=== PATIENT | female | born 1950 | race Caucasian/White ===

== ENCOUNTER 2022-05-27 13:04 | Outpatient (CLI) | payer MEDICARE, SELFPAY ==
[2022-05-27 14:05] LABS: Albumin* 4.2 g/dL (3.3-5.0); Chloride* 107 mmol/L (96-114); Potassium* 4.4 mmol/L (3.6-5.1); Sodium* 139 mmol/L (135-149)
[2022-05-27 14:08] LABS: Alanine Aminotransferase* 23 U/L (4-35); Alkaline Phosphatase* 64 U/L (40-150); Aspartate Amino Transferase* 29 U/L (12-35); Bilirubin Total* 0.6 mg/dL (0.1-1.5); Blood Urea Nitrogen* 21 mg/dL (7-30); Carbon Dioxide* 25 mmol/L (20-32); Creatinine* 0.6 mg/dL (0.5-1.5); Estimated Glomerular Filt Rate 94 ml/min; Glucose* 103 mg/dL (60-115); Total Protein* 6.9 g/dL (6.0-8.3); Triglycerides* 72 mg/dL (40-149)
[2022-05-27 14:09] LABS: Calcium* 9.8 mg/dL (8.4-10.6)
[2022-05-27 14:21] LABS: Vitamin D 25 Hydroxy* 34 ng/mL (30-80)
[2022-05-27 14:54] LABS: Vitamin B12* 621 pg/mL (243-894)
[2022-05-27 15:19] LABS: Cholesterol* 183 mg/dL (90-199); LDL Cholesterol Calculated 63 mg/dL (<100)
[2022-05-27 15:22] LABS: HDL Cholesterol* 106 mg/dL (>=50)
[2022-05-27 15:48] LABS: Creatinine Urine 111.4 mg/dL
[2022-05-27 15:51] LABS: Microalbumin Creatinine Ratio 0 mg/g (0-30); Microalbumin Urine 1 mg/dL
== END 2022-05-27 13:05 | disposition home or self-care (01) ==
PROVIDERS: PCP Family Medicine; Visit Provider Family Medicine
DX: Z00.00 Encounter for general adult medical examination without abnormal findings (principal); E66.01 Morbid (severe) obesity due to excess calories; R73.03 Prediabetes
CPT/HCPCS: 80053; 80061; 82043; 82306; 82570; 82607

== ENCOUNTER 2022-07-29 10:21 | Outpatient (CLI) | payer MEDICARE, SELFPAY | END 2022-07-29 10:22 | disposition home or self-care (01) | PROVIDERS: PCP Family Medicine; Visit Provider Family Medicine | DX: R51.9 Headache, unspecified (principal); E78.5 Hyperlipidemia, unspecified; R73.03 Prediabetes; I10 Essential (primary) hypertension; G44.85 Primary stabbing headache | CPT/HCPCS: 83735; 86140 ==

== ENCOUNTER 2022-08-12 12:50 | Outpatient (CLI) | payer MEDICARE, SELFPAY ==
--- NOTE | 2022-08-12 13:00 | CRLHL7_ITS ---
For Patients: As a result of the Century Cures Act, medical imaging exams and procedure reports are released immediately into your electronic medical record. You may view this report before your referring provider. If you have questions, please contact your health care provider. CT ANGIOGRAM HEAD DATE: 08/12/2022 CLINICAL HISTORY: Patient with brain aneurysm and headache. TECHNIQUE: Standard helical CT image acquisition through the intracranial circulation following intravenous administration of contrast material with bolus tracking. Multiplanar reconstructed images were performed and interpreted. COMPARISON: CT same day. FINDINGS: There is a 2.5mm left lateral paraclinoid ICA aneurysm. There is no large vessel occlusion. The right internal carotid artery is normal. The right middle cerebral artery and its branches are normal. The right anterior cerebral artery and its branches are normal. The left middle cerebral artery and its branches are normal. The left anterior cerebral artery and its branches are normal. The anterior communicating artery is well visualized and appears normal. The right vertebral artery and PICA are normal. The left vertebral artery and PICA are normal. The left vertebral artery is dominant. The basilar artery is patent and appears normal. The right posterior cerebral artery is normal. The left posterior cerebral artery is normal. IMPRESSION: 2.5mm left lateral paraclinoid ICA aneurysm. Telehealth consultation with [facility]`s Neurointerventional team for enrollment in our long-term brain aneurysm surveillance program can be arranged by calling . Rocío Light M.D. Neurointerventional Radiologist [facility] Pager: Office/Appointments: Answering Service: [facility]: [email or web address] Please note that all CT scans at this facility use dose modulation, iterative reconstruction, and/or weight-based dosing when appropriate to reduce radiation dose to as low as reasonably achievable. Dictated by: Rocío Light MD @ 08/12/2022 15:54:56 (Electronically Signed)
--- NOTE | 2022-08-12 13:00 | CRLHL7_ITS ---
For Patients: As a result of the Cures Act, medical imaging exams and procedure reports are released immediately into your electronic medical record. You may view this report before your referring provider. If you have questions, please contact your health care provider. CT HEAD DATE: 08/12/2022 CLINICAL HISTORY: Patient with headache, known aneurysm. TECHNIQUE: Standard CT scanning of the head was performed. COMPARISON: None. FINDINGS: There is no intracranial hemorrhage. There is no territorial infarction. There are mild microangiopathic changes. There is diffuse parenchymal volume loss. There is no mass effect or midline shift. The calvarium is unremarkable. The orbits are unremarkable. The paranasal sinuses are unremarkable. The mastoid air cells are unremarkable. The soft tissues are unremarkable. IMPRESSION: 1. No intracranial hemorrhage or territorial infarction. 2. Mild microangiopathic changes and diffuse parenchymal volume loss. Please note that all CT scans at this facility use dose modulation, iterative reconstruction, and/or weight-based dosing when appropriate to reduce radiation dose to as low as reasonably achievable. Dictated by: Rocío Light MD @ 08/12/2022 15:52:03 (Electronically Signed)
[2022-08-12 13:42] LABS: Creatinine* 0.7 mg/dL (0.5-1.5); Estimated Glomerular Filt Rate 91 ml/min
== END 2022-08-12 12:51 | disposition home or self-care (01) ==
LOC: CT 12:51
PROVIDERS: PCP Family Medicine; Visit Provider Family Medicine
DX: G44.85 Primary stabbing headache (principal); I67.1 Cerebral aneurysm, nonruptured
CPT/HCPCS: 36415; 70450; 70496; 82565; Q9967

== ENCOUNTER 2023-05-27 12:06 | Outpatient (CLI) | payer MEDICARE, SELFPAY | END 2023-05-27 12:07 | disposition home or self-care (01) | PROVIDERS: PCP Family Medicine; Visit Provider Family Medicine | DX: Z00.00 Encounter for general adult medical examination without abnormal findings (principal); I10 Essential (primary) hypertension; E78.5 Hyperlipidemia, unspecified; E66.01 Morbid (severe) obesity due to excess calories; R73.03 Prediabetes; R03.0 Elevated blood-pressure reading, without diagnosis of hypertension | CPT/HCPCS: 80053; 80061; 82043; 82306; 82570; 82607 ==

== ENCOUNTER 2023-06-04 07:53 | Outpatient (CLI) | payer MEDICARE, SELFPAY ==
--- NOTE | 2023-06-04 09:22 | P.ANES_ITS ---
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
--- NOTE | 2023-06-04 10:12 | W.ANESCHARGE ---
Anesthesia Charges Start Date/Time Anesthesia Start Date: 06/04/23 Anesthesia Start Time: 09:02 Stop Date/Time Anesthesia Stop Date: 06/04/23 Anesthesia Stop Time: 09:17 Summary Extremes of Age - Over 70 or under 1: MDA
== END 2023-06-04 07:54 | disposition home or self-care (01) ==
LOC: OP CLINIC 07:53
PROVIDERS: PCP Family Medicine; Visit Provider Internal Medicine
DX: R10.13 Epigastric pain (principal); R12 Heartburn
CPT/HCPCS: 00731; 43239; 88305; 88342; 99100; J2704

== ENCOUNTER 2023-08-11 13:39 | Outpatient (CLI) | payer MEDICARE, SELFPAY ==
--- NOTE | 2023-08-11 14:00 | XR_ITS ---
Patient: DIXIE PEREZ Facility:?[facility] Patient ID:?[id number] Site Patient ID:?[id number]. Site :?[id number] Study:?DEXA-Bone Density SPINE/BOTH HIPS-08/11/2023 2:09:45 PM Ordering Physician:LEXI Final Report: DXA BONE MINERAL DENSITY STUDY Reason for exam: Asymptomatic menopausal state. Current height (in): 63.5. Weight (lb): 237. Menopause age: 51. Ethnicity: White. 1. Have you had a previous hip or vertebral fracture? No. 2. Have you had any fractures during your adult life which did not result from significant trauma (e.g., auto accident)? No. 3. Did either of your parents have a hip fracture? No. 4. Do you smoke? No. 5. Have you ever taken Glucocorticoids? No. 6. Do you have rheumatoid arthritis? No. 7. Do you have secondary osteoporosis? No. 8. Do you drink 3 or more alcoholic drinks per day? No. 9. Are you being treated for osteoporosis? No. 10. Have you ever taken any of the following medications: Actonel, Evista, Fosamax, Miacalcin, Reclast, Boniva, Forteo, HRT (i.e., estrogen/hormone therapy), Protelos, Prolia, Vitamin D, Calcium, other ? please specify. ANSWER: Yes, vitamin D and multivitamin. 11. Do you have any of the following medical conditions: Anorexia or bulimia, asthma or emphysema, end stage renal disease, hyperparathyroidism, any seizure disorders, cancer, inflammatory bowel diseases, hysterectomy, other ? please specify. ANSWER: Yes, asthma or emphysema. 12. What was your maximum height (inches)? 64. 13. Do you perform weight bearing exercise regularly? No. 14. Do you regularly consume dairy products? No. 15. Do you drink caffeinated beverages? No. If female: 16. At what age did your period start? 12. 17. Are you premenopausal? No. 18. How many full-term pregnancies have you had? 4. 19. Have you ever missed your period for more than 6 months in a row (not including or menopause)? No. TECHNIQUE: Bone mineral density study was performed using the [facility]. FINDINGS: The results of the study expressed as bone mineral density (BMD) are as follows: Lumbar spine L1 to L4: BMD: 0.999 g/cm2. T-score: -0.4. Z-score: 2.0 Neck Left: BMD: 0.729 g/cm2. T-score: -1.1. Z-score: 1.0 Right: BMD: 0.803 g/cm2. T-score: -0.4. Z-score: 1.7 Total Left: BMD: 1.083 g/cm2. T-score: 1.2. Z-score: 3.0 Right: BMD: 1.079 g/cm2. T-score: 1.1. Z-score: 2.9 IMPRESSION: Osteopenia. *Comparison exams done prior to 10/2019 were performed on different unit, [facility]. COMPARISON: Compared with scan of 07/28/2018, the bone mineral density has decreased by 1.2 percent at the spine and increased by 12.9 percent at the hip. FRAX 10-year Fracture Risk Major Osteoporotic Fracture: 8.9% Hip Fracture: 1.4% Reported Risk Factors: [place] () Neck BMD=0.729, BMI=41.3 Narciso Looney M.D. Diagnostic Radiologist [email or web address] ANITA/[email or web address] D& Transcribed: 12:51 p.mHemanth medel/Dictated by: Narciso Looney MD @ 08/12/2023 9:01:00 AM Signed by:?Narciso Looney MD @08/12/2023 1:42:50 PM (Electronic Signature)
== END 2023-08-11 13:40 | disposition home or self-care (01) ==
PROVIDERS: PCP Family Medicine; Visit Provider Family Medicine
DX: Z78.0 Asymptomatic menopausal state (principal); M85.88 Other specified disorders of bone density and structure, other site
CPT/HCPCS: 77080

== ENCOUNTER 2023-09-09 09:25 | Outpatient (CLI) | payer MEDICARE, SELFPAY ==
--- NOTE | 2023-09-09 09:45 | MM_ITS ---
Patient: DIXIE PEREZ Facility:?[facility] Patient ID:?[id number] Site Patient ID:?[id number]. Site :?[id number] Study:?XRay-Breast Bilateral 3D W/CAD-09/09/2023 10:24:48 AM Ordering Physician:Patricia Final Report: DIGITAL DIAGNOSTIC BILATERAL MAMMOGRAM USING TOMOSYNTHESIS AND COMPUTER-AIDED DETECTION LEFT BREAST ULTRASOUND CLINICAL HISTORY: BILATERAL breast pain, LEFT breast lump. COMPARISON: 07/28/2018. TECHNIQUE: Digital BILATERAL mammogram in four projections. Tomosynthesis and CAD utilized. Real-time ultrasound imaging of LEFT breast with imaging documentation. BREAST COMPOSITION: The breasts are almost entirely fatty. FINDINGS: 3D CC/MLO BILATERAL mammogram images submitted. No suspicious masses or architectural distortion. No suspicious calcifications or adenopathy. Targeted LEFT breast ultrasound performed. At 9 o`clock 2 cm from the nipple, there is normal breast tissue. No fibrocystic change or mass. No suspicious findings. IMPRESSION: No evidence of malignancy. RECOMMENDATIONS: Annual BILATERAL screening mammography. Results and recommendations discussed with the patient. BI-RADS Category 1: Negative A lay language report of this examination will be provided to the patient. Dictated by Narciso Looney MD @ 09/09/2023 12:02:24 PM kojo/Dictated by: Narciso Looney MD @ 09/09/2023 12:02:00 PM Signed by:?Narciso Looney MD @09/09/2023 12:24:29 PM (Electronic Signature)
--- NOTE | 2023-09-09 10:15 | US_ITS ---
Patient: DIXIE PEREZ Facility:?[facility] Patient ID:?[id number] Site Patient ID:?[id number]. Site :?1950 Study:?US-Breast Left DR WEBSTER TO READ-09/09/2023 10:16:19 AM Ordering Physician:?MARY COSTA Final Report: PLEASE SEE DIGITAL DIAGNOSTIC BILATERAL MAMMOGRAM PERFORMED SAME DAY CRL:[email or web address] medel/Dictated by: Narciso Webster MD @ 09/09/2023 12:02:00 PM Signed by:?Narciso Webster MD @09/09/2023 12:24:27 PM (Electronic Signature)
== END 2023-09-09 09:26 | disposition home or self-care (01) ==
LOC: MAMMO 09:26
PROVIDERS: PCP Family Medicine; Visit Provider Family Medicine
DX: N63.20 Unspecified lump in the left breast, unspecified quadrant (principal); N64.4 Mastodynia
CPT/HCPCS: 76642; 77066; G0279

== ENCOUNTER 2024-06-05 09:07 | Outpatient (CLI) | payer MEDICARE, SELFPAY | END 2024-06-05 09:08 | disposition home or self-care (01) | PROVIDERS: PCP Family Medicine; Visit Provider Family Medicine | DX: E78.5 Hyperlipidemia, unspecified (principal); I10 Essential (primary) hypertension; R73.03 Prediabetes; Z13.21 Encounter for screening for nutritional disorder; Z11.59 Encounter for screening for other viral diseases | CPT/HCPCS: 80053; 82043; 82570; 82607; 86803 ==

== ENCOUNTER 2024-06-16 08:48 | Outpatient (CLI) | payer MEDICARE, SELFPAY ==
--- NOTE | 2024-06-16 08:00 | CRLHL7_ITS ---
For Patients: As a result of the Century Cures Act, medical imaging exams and procedure reports are released immediately into your electronic medical record. You may view this report before your referring provider. If you have questions, please contact your health care provider. CT ANGIOGRAM HEAD DATE: 06/16/2024 CLINICAL HISTORY: Patient with brain aneurysm. TECHNIQUE: Standard helical CT image acquisition through the intracranial circulation following intravenous administration of contrast material with bolus tracking. 2D and 3D MIP images for post-processing were performed and interpreted on an independent workstation and 3D images were permanently archived. COMPARISON: CTA 08/12/2022. FINDINGS: There is an unchanged 2.5mm left lateral paraclinoid ICA aneurysm. There is no proximal intracranial large vessel occlusion. The right internal carotid artery is normal. The right middle cerebral artery and its branches are normal. The right anterior cerebral artery and its branches are normal. The left middle cerebral artery and its branches are normal. The left anterior cerebral artery and its branches are normal. The anterior communicating artery is well visualized and appears normal. The right vertebral artery and PICA are normal. The left vertebral artery and PICA are normal. The left vertebral artery is dominant. The basilar artery is patent and appears normal. The right posterior cerebral artery is normal. The left posterior cerebral artery is normal. The visualized venous structures are patent. IMPRESSION: Unchanged 2.5mm left lateral paraclinoid ICA aneurysm. Telehealth consultation with [facility]`s Neurointerventional team for enrollment in our long-term brain aneurysm surveillance program can be arranged by calling . Rocío Light M.D. Neurointerventional Radiologist [facility] [place] Pager: Office/Referrals: [facility]: [email or web address] Please note that all CT scans at this facility use dose modulation, iterative reconstruction, and/or weight-based dosing when appropriate to reduce radiation dose to as low as reasonably achievable. Dictated by: Rocío Light MD @ 06/16/2024 12:54:04 (Electronically Signed)
--- NOTE | 2024-06-16 09:15 | CRLHL7_ITS ---
For Patients: As a result of the Century Cures Act, medical imaging exams and procedure reports are released immediately into your electronic medical record. You may view this report before your referring provider. If you have questions, please contact your health care provider. Indication: Cerebral aneurysm Technique: Ultrasound abdominal aorta utilizing grayscale and color flow techniques Comparison: None. Findings: Proximal abdominal aorta: 2.6 x 2.0 centimeters. Mid: 2.3 by 1.8 centimeters. Distal: 2.7 x 2.3 centimeters. Right common iliac: 1.4 centimeter. Left common iliac: 1.3 centimeter. Appropriate color flow. Mild atherosclerotic changes. Impression: 25 millimeters ectasia of the infrarenal abdominal aorta. Recommend follow-up imaging in 5 years. Dictated by Allan Ferrari MD @ 06/16/2024 2:11:20 PM (Electronically Signed)
== END 2024-06-16 08:49 | disposition home or self-care (01) ==
LOC: CT 08:49
PROVIDERS: PCP Family Medicine; Visit Provider Family Medicine
DX: I67.1 Cerebral aneurysm, nonruptured (principal); I10 Essential (primary) hypertension; E78.5 Hyperlipidemia, unspecified; R73.03 Prediabetes
CPT/HCPCS: 70496; 76775; Q9967

== ENCOUNTER 2024-06-19 07:40 | Outpatient (CLI) | payer MEDICARE, SELFPAY | END 2024-06-19 07:41 | disposition home or self-care (01) | LOC: NFLDREF 06-26 01:40 | PROVIDERS: PCP Family Medicine; Referring Provider Family Medicine; Visit Provider Family Medicine | DX: A04.8 Other specified bacterial intestinal infections (principal) | CPT/HCPCS: 87338 ==

== ENCOUNTER 2024-06-20 07:36 | Outpatient (CLI) | payer MEDICARE, SELFPAY ==
[2024-06-20 14:02] VITALS: BMI 43.4
== END 2024-06-20 07:37 | disposition home or self-care (01) ==
LOC: NUTRITION 07:36
PROVIDERS: PCP Family Medicine; Visit Provider Dietitian, Registered
DX: E66.9 Obesity, unspecified (principal); Z71.3 Dietary counseling and surveillance
CPT/HCPCS: G0463

== ENCOUNTER 2024-06-26 07:41 | Outpatient (CLI) | payer MEDICARE, SELFPAY | END 2024-06-26 07:42 | disposition home or self-care (01) | PROVIDERS: PCP Family Medicine; Visit Provider Family Medicine | DX: I71.43 Infrarenal abdominal aortic aneurysm, without rupture (principal); I67.1 Cerebral aneurysm, nonruptured | CPT/HCPCS: 93306 ==

== ENCOUNTER 2024-07-11 12:20 | Outpatient (CLI) | payer MEDICARE, SELFPAY ==
--- NOTE | 2024-07-18 11:53 | W.PM.SLEEP ---
Sleep Study Details Details Interpreting Provider: Arnaldo Date of Sleep Study: 07/11/24 Sleep Study Details: STUDY TYPE:? Home unattended ? BMI:? 43.8 ORDERING PROVIDER:Tiburcio Mcintosh INDICATION:? Concern about sleep apnea ? SLEEP SUMMARY:? 534 minutes monitored RESPIRATORY SUMMARY:? AHI 9.8 per CMS guideline, 17.9 per rule 1A Low oxygen 78 3.3% of study oxygen less than 90% Snoring 98.7% PERIODIC LIMB MOVEMENTS OF SLEEP:? Not record CARDIAC:? Range 44-99, mean 71 beats per minute IMPRESSION:? Mild obstructive sleep apnea per CMS guideline. Treatment options include weight loss, dental appliance, or CPAP. RECOMMENDATION: []
== END 2024-07-11 12:21 | disposition home or self-care (01) ==
LOC: SLEEP 12:21
PROVIDERS: PCP Family Medicine; Visit Provider Otolaryngology
DX: G47.33 Obstructive sleep apnea (adult) (pediatric) (principal)
CPT/HCPCS: 95806

== ENCOUNTER 2024-07-13 11:00 | Outpatient (CLI) | payer MEDICARE, SELFPAY ==
[2024-07-13 11:12] VITALS: BMI 43.7
== END 2024-07-13 11:01 | disposition home or self-care (01) ==
LOC: NUTRITION 15:28
PROVIDERS: PCP Family Medicine; Visit Provider Dietitian, Registered
DX: E66.9 Obesity, unspecified (principal); Z68.42 Body mass index [BMI] 45.0-49.9, adult; Z71.3 Dietary counseling and surveillance
CPT/HCPCS: G0463

== ENCOUNTER 2024-08-11 11:09 | Outpatient (CLI) | payer MEDICARE, SELFPAY ==
[2024-08-11 10:59] VITALS: BMI 43.4
== END 2024-08-11 11:10 | disposition home or self-care (01) ==
LOC: NUTRITION 11:09
PROVIDERS: PCP Family Medicine; Visit Provider Dietitian, Registered
DX: E66.9 Obesity, unspecified (principal); Z68.42 Body mass index [BMI] 45.0-49.9, adult; Z71.3 Dietary counseling and surveillance
CPT/HCPCS: G0463

== ENCOUNTER 2024-11-23 08:15 | Outpatient (CLI) | payer MEDICARE, SELFPAY ==
--- NOTE | 2024-11-23 08:45 | CRLHL7_ITS ---
For Patients: As a result of the Century Cures Act, medical imaging exams and procedure reports are released immediately into your electronic medical record. You may view this report before your referring provider. If you have questions, please contact your health care provider. DIGITAL DIAGNOSTIC BILATERAL MAMMOGRAM USING TOMOSYNTHESIS AND COMPUTER-AIDED DETECTION LEFT BREAST ULTRASOUND CLINICAL HISTORY: LEFT breast pain. COMPARISON: 09/09/2023, 07/28/2018, 07/12/2016. TECHNIQUE: Digital BILATERAL mammogram in four projections with computer-aided detection. Tomosynthesis was used in this interpretation. Real-time ultrasound imaging of LEFT breast with imaging documentation. BREAST COMPOSITION: There are scattered areas of fibroglandular density. FINDINGS: 3D CC/MLO BILATERAL mammogram images submitted. No suspicious mass or architectural distortion. No suspicious calcifications or adenopathy. Targeted LEFT breast ultrasound performed at 8 o`clock 15 cm from the nipple corresponding to the area of concern. No fibrocystic change or solid mass. IMPRESSION: No suspicious findings. No evidence of malignancy. RECOMMENDATIONS: Routine screening mammography. A lay language report of this examination will be provided to the patient. BI-RADS Category 1: Negative Dictated by Narciso Looney MD @ 11/23/2024 9:34:06 AM jj/Dictated by: Narciso Looney MD @ 11/23/2024 9:34:00 AM (Electronically Signed)
--- NOTE | 2024-11-23 09:15 | CRLHL7_ITS ---
For Patients: As a result of the Cures Act, medical imaging exams and procedure reports are released immediately into your electronic medical record. You may view this report before your referring provider. If you have questions, please contact your health care provider. SEE DIGITAL DIAGNOSTIC BILATERAL MAMMOGRAM PERFORMED SAME DAY CRL:[email or web address] medel/Dictated by: Narciso Looney MD @ 11/23/2024 9:34:00 AM (Electronically Signed)
== END 2024-11-23 08:16 | disposition home or self-care (01) ==
LOC: MAMMO 08:16
PROVIDERS: PCP Family Medicine; Visit Provider Family Medicine
DX: N64.4 Mastodynia (principal)
CPT/HCPCS: 76642; 77066; G0279